=== PATIENT | male | born 1990 ===

== ENCOUNTER 2016-05-20 16:24 | Emergency (ER) | payer OTHER ==
[2016-05-20 16:42] VITALS: BP 132/76; PULSE 82; RESP 17; TEMP 97.8; O2SAT 100
[2016-05-20] MEDS ORDERED: Tetracaine 0.5% Ophth 2 ML BOTTLE OU ONE (17:40)
[2016-05-20] MEDS ORDERED: TDAP Vaccine 0.5 mL Syr IM ONE (18:14)
[2016-05-20] MEDS ORDERED: Erythromycin 0.5% Ophth Oint 1 APPLIC/3.5 G OU ONE (18:15)
--- NOTE | 2016-05-20 18:21 | ED PDOC ---
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 denies: Decreased Vision, Swelling, Itching, Discharge From Eye Additional History Per: Patient Past Medical History Reviewed: Historical Data, Nursing Documentation, Vital Signs Vital Signs: Last Vital Signs Temp 97.8 F 05/20/16 16:39 Pulse 82 05/20/16 16:39 Resp 17 05/20/16 16:39 BP 132/76 05/20/16 16:39 Pulse Ox 100 05/20/16 16:39 - Medical History PMH: No Chronic Diseases - Family History Family History: States: Unknown Family Hx - Immunization History Hx Tetanus Toxoid Vaccination: No - Home Medications Home Medications: Ambulatory Orders Medication Instructions Recorded Erythromycin 0.5% [Ilytocin] 3.5 gm OD QID 5 Days 05/20/16 - Allergies Allergies/Adverse Reactions: Allergies Allergy/AdvReac Type Severity Reaction Status Date / Time No Known Allergies Allergy Verified 05/20/16 16:39 Review of Systems Eyes: Positive for: Pain, Redness. Negative for: Vision Change, Conjunctivae Inflammation Neurological: Negative for: Weakness, Numbness, Headache Physical Exam - Reviewed Nursing Documentation Reviewed: Yes Vital Signs Reviewed: Yes - Physical Exam Appears: Positive for: Uncomfortable Head Exam: Positive for: ATRAUMATIC, NORMAL INSPECTION, NORMOCEPHALIC Eye Exam: Positive for: EOMI, PERRL, Conjunctival injection, Other (small metal fb at 6oclock neg fluorscein stain ac neg). Negative for: Periorbital swelling, Periorbital tenderness - ECG O2 Sat by Pulse Oximetry: 100 Pulse Ox Interpretation: Normal - Progress ED Course And Treament: see Dr shah tomorrow at 9am Re-evaluation Time: 18:22 Condition: Improved Disposition - Clinical Impression Clinical Impression: Foreign body of right conjunctiva - Patient ED Disposition Is Patient to be Admitted: No Counseled Patient/Family Regarding: Studies Performed, Diagnosis, Need For Followup, Rx Given - Disposition Referrals: John Paul Shah MD [Staff Provider] - (tomorrow at 9am) Disposition: Routine/Home Disposition Time: 18:24 Condition: STABLE Prescriptions: Erythromycin 0.5% [Ilytocin] 3.5 gm OD QID 5 Days Instructions: Eye Foreign Body (ED) Print Language: ENGLISH
== END 2016-05-20 19:20 | disposition home or self-care (01) ==
LOC: H.ER 16:24
DX: T15.11XA Foreign body in conjunctival sac, right eye, initial encounter (principal)